=== PATIENT | male | born 1930 | race Caucasian/White ===

== ENCOUNTER → 2017-01-04 | Outpatient (CLI) | payer MEDICARE, OTHER ==
[~2017-01-04] MED LIST: ASPI-728 PO; ATOR40TA20 PO; DOXA4TAB PO; FERR1TAB PO; FLUT1DIS4 ORAL INH; MULT-806 PO; OXYC5TAB PO; POLY17PO3 PO; TAMS0.4C20 PO; [UNRECOGNIZED DRUG - CODE] PO
--- NOTE | 2017-01-04 16:34 | DI ---
EXAM: US RENAL DATE: 01/04/2017 12:00 AM SITE OF DICTATION: [place]. INDICATION: ITS.REASON: R33.9 URINARY RETENTION COMPARISON: None available. TECHNIQUE: Multiple real-time grayscale sonographic images were obtained of the right and left kidneys with color flow and spectral analysis. FINDINGS: The right kidney measures 11.3 x 5.2 x 6.0 cm and demonstrates moderate to marked hydronephrosis and hydroureter. The left kidney measures 11.9 x 6.4 x 6.7 cm and demonstrates moderate to marked hydronephrosis and hydroureter. No obvious mass or nephrolithiasis identified. Carr catheter is in place within decompressed bladder. IMPRESSION: Bilateral moderate to marked hydronephrosis and hydroureter. Recently placed Carr catheter within decompressed bladder. The findings may reflect bladder outlet obstruction. Clinical correlation is recommended. The primary care team physician/nurse was informed of the findings on 01/04/2017 at 4:30 PM. .
== END ==
LOC: IMA 15:43
PROVIDERS: ATTEND Specialist
DX: N13.4 Hydroureter (principal); N13.30 Unspecified hydronephrosis; R33.9 Retention of urine, unspecified